=== PATIENT | male | born 2000 | race Caucasian/White ===

== ENCOUNTER 2025-01-30 22:15 | Emergency (ER) | payer BC ==
[~2025-01-30] VITALS: Ht 172.7 cm; Wt 111.1 kg
[2025-01-30] MEDS ORDERED: Trimethoprim/Sulfamethoxazole DS Tab PO ONE (23:55)
[2025-01-30] MEDS ORDERED: BACTRIM DS TAB1 EAC1 PO (23:59)
== END 2025-01-31 00:03 | disposition home or self-care (01) ==
LOC: ER 22:15
DX: S61.411A Laceration without foreign body of right hand, initial encounter (principal); W26.8XXA Contact with other sharp object(s), not elsewhere classified, initial encounter
CPT/HCPCS: 12002; 99282-25; A9270